=== PATIENT | female | born 1950 | race Caucasian/White ===

== ENCOUNTER 2019-01-12 20:38 | Emergency (ER) | payer MEDICARE ==
[2019-01-12 20:52] LABS: ABSOLUTE BASOPHILS # (AUTO) 0.1 10^3/uL (0.0-0.2); ABSOLUTE EOSINOPHILS # (AUTO) 0.5 10^3/uL (0.0-0.6); ABSOLUTE LYMPHOCYTES (AUTO) 3.1 10^3/uL (0.5-4.7); ABSOLUTE MONOCYTES (AUTO) 0.4 10^3/uL (0.1-1.4); ABSOLUTE NEUT (AUTO) 4.8 10^3/uL (1.7-8.2); BASOPHILS % (AUTO) 1.1 % (0-2); EOSINOPHILS % (AUTO) 5.3 % (0-6); HEMATOCRIT 39.9 % (36.0-47.0); HEMOGLOBIN 13.9 g/dL (12.0-15.5); LYMPHOCYTES % (AUTO) 34.6 % (13-45); MEAN CORPUSCULAR HEMOGLOBIN 29.1 pg (27.0-33.4); MEAN CORPUSCULAR HGB CONC 34.8 g/dL (32.0-36.0); MEAN CORPUSCULAR VOLUME 84 fl (80-97); MONOCYTES % (AUTO) 4.8 % (3-13); PLATELET COUNT 220 10^3/uL (150-450); RED BLOOD COUNT 4.78 10^6/uL (3.72-5.28); RED CELL DISTRIBUTION WIDTH 14.6 % (11.5-14.0); SEGMENTED NEUTROPHILS % (AUTO) 54.2 % (42-78); TOTAL CELLS COUNTED % (AUTO) 100 %; WHITE BLOOD COUNT 8.8 10^3/uL (4.0-10.5)
[2019-01-12 20:57] LABS: INTERNATIONAL RATION (INR) 0.95; PROTHROMBIN TIME 12.7 SEC (11.4-15.4)
[2019-01-12] MEDS ORDERED: NITROGLYCERIN 2% OINTMENT 1 GM PACKET ONE (21:11)
[2019-01-12 21:12] LABS: ALBUMIN 4.4 g/dL (3.5-5.0); ALKALINE PHOSPHATASE 71 U/L (38-126); ANION GAP 9 (5-19); ASPARTATE AMINO TRANSFERASE 27 U/L (14-36); BILIRUBIN,DIRECT 0.2 mg/dL (0.0-0.4); BILIRUBIN,TOTAL 0.3 mg/dL (0.2-1.3); BLOOD UREA NITROGEN 12 mg/dL (7-20); CALCIUM 9.7 mg/dL (8.4-10.2); CARBON DIOXIDE 28 mmol/L (22-30); CHLORIDE 103 mmol/L (98-107); GLUCOSE 110 mg/dL (75-110); POTASSIUM 3.9 mmol/L (3.6-5.0); TOTAL PROTEIN 7.5 g/dL (6.3-8.2)
[2019-01-12 21:14] LABS: CREATINE KINASE < 20 U/L (30-135)
[2019-01-12] MEDS ORDERED: CLOPIDOGREL BISULFATE 300 MG TABLET PO ONE (21:15)
[2019-01-12] MEDS ORDERED: NITROGLYCERIN 2% OINTMENT 1 GM PACKET TP ONE (21:15)
[2019-01-12] MEDS ORDERED: NITROGLYCERIN/D5W 50 MG/250 ML RTUINJ IV PRN ×2 (21:18→21:40)
--- NOTE | 2019-01-12 21:18 | ER Document Report ---
ED General - General Chief Complaint: Chest Pain Stated Complaint: CHEST PAIN Time Seen by Provider: 01/12/19 21:08 Primary Care Provider: JENNIFER SONI MD [Primary Care Provider] - Follow up as needed TRAVEL OUTSIDE OF THE [place] IN LAST 30 DAYS: No - HPI Notes: This is a 68-year-old female with a history of tobacco abuse and hypertension as well as family history of coronary artery disease that presents complaining of chest pressure that has been intermittent for the past 4 days. Patient states that the discomfort became much worse this evening about a hour prior to prese ntation. Patient states she was sitting up in bed watching TV when she had a heavy sensation of pressure in her chest. Patient called 911. When 911 arrived, they administered 4 baby aspirin and gave her sublingual nitroglycerin with complete relief of chest discomfort. Patient denies nausea, vomiting, diaphoresis, radiation of pain. Patient localizes the pain to the center of her chest. Patient denies prior history of coronary artery disease. Differential diagnosis: Unstable angina: STEMI, NSTEMI, coronary artery disease, tobacco abuse, hypertensive urgency - Related Data Allergies/Adverse Reactions: No Known Allergies Allergy (Verified 01/14/17 16:17) Past Medical History - Social History Smoking Status: Current Every Day Smoker Chew tobacco use (# tins/day): No Frequency of alcohol use: Occasional Drug Abuse: None Family History: None Patient has suicidal ideation: No Patient has homicidal ideation: No - Past Medical History Cardiac Medical History: Reports: Hx Hypertension Psychiatric Medical History: Reports: Hx Depression Past Surgical History: Reports: Hx Cholecystectomy, Hx Hysterectomy Review of Systems - Review of Systems Constitutional: No symptoms reported EENT: No symptoms reported Cardiovascular: Chest pain Respiratory: No symptoms reported Gastrointestinal: No symptoms reported Genitourinary: No symptoms reported Female Genitourinary: No symptoms reported Musculoskeletal: No symptoms reported Skin: No symptoms reported Hematologic/Lymphatic: No symptoms reported Neurological/Psychological: No symptoms reported Physical Exam - Vital signs Vitals: Resp 22 H 01/12/19 20:53 - Notes Notes: PHYSICAL EXAMINATION: GENERAL: Well-appearing, well-nourished and in no acute distress. HEAD: Atraumatic, normocephalic. EYES: Pupils equal round and reactive to light, extraocular movements intact, sclera anicteric, conjunctiva are normal. ENT: nares patent, oropharynx clear without exudates. Moist mucous membranes. NECK: Normal range of motion, supple without lymphadenopathy LUNGS: Breath sounds clear to auscultation bilaterally and equal. No wheezes rales or rhonchi. HEART: Regular rate and rhythm without murmurs ABDOMEN: Soft, nontender, normoactive bowel sounds. No guarding, no rebound. No masses appreciated. EXTREMITIES: Normal range of motion, no pitting or edema. No cyanosis. NEUROLOGICAL: No focal neurological deficits. Moves all extremities spontaneously and on command. PSYCH: Normal mood, normal affect. SKIN: Warm, Dry, normal turgor, no rashes or lesions noted. Course - Re-evaluation Re-evalutation: 01/12/19 21:50 Patient is currently chest pain-free at this time. Her blood pressure is 193/96 with a heart rate of 59. O2 sats are 92%. Respiratory rate is 16. Nitroglycerin drip and heparin drip have been ordered. This MD discussed the patient case with the electronic assembler at [facility], Dr. Yusuf, at 2113 hrs. He reviewed the EKG image. He recommended a heparin and nitroglycerin drip and accepted the patient for transfer. While he does not feel the patient needs to be emergently cathed based on review the EKG, he did request that nitroglycerin drip and heparin drip be ordered for the patient. Plavix was also ordered for the patient. - Vital Signs Vital signs: Temp Pulse Resp BP Pulse Ox 97.9 F 15 196/101 H 97 01/12/19 22:11 01/12/19 21:16 01/12/19 21:16 01/12/19 20:54 - Laboratory Result Diagrams: 01/12/19 20:09 01/12/19 20:09 Laboratory results interpreted by me: 01/12/19 01/12/19 20:09 20:09 RDW 14.6 H Creatine Kinase < 20 L - EKG Interpretation by Me Additional EKG results interpreted by me: 01/12/19 21:54 EKG performed at 7 hrs. on 01/12/2019. EKG interpreted by this MD. Impression: Patient has a sinus bradycardia with a rate of 56, patient has ST depressions in 1, 2, aVL, V3 through V6, and ST elevation in aVR and V1. P waves preceding QRS complexes. QRS complexes are narrow. Impression abnormal EKG Right side EKG done on 01/12/2019 at 2132 hrs. was interpreted by this MD. Imp ression normal sinus rhythm with a rate of 60, patient has ST depressions in 1, 2, aVL patient has an T inverted T waves and 3 and aVF patient has ST elevation in aVR and V1. Impression abnormal EKG - Consults DR. YUSUF Time consulted: 21:23 - Patient discussed with electronic assembler at [facility]. He accepted patient for transfer to his facility Reason for consultation: 01/12/19 22:22 Chest pain, abnormal EKG Critical Care Note - Critical Care Note Total time excluding time spent on procedures (mins): 60 Discharge - Discharge Clinical Impression: Acute chest pain, Abnormal EKG, Hypertensive urgency, malignant Disposition: [facility]ESS [facility] Admitting Provider: DR. YUSUF Referrals: JENNIFER SONI MD [Primary Care Provider] - Follow up as needed
[2019-01-12] MEDS ORDERED: HEPARIN SODIUM,PORCINE/D5W 25,000 UNIT/250 ML RTUINJ IV PRN (21:42)
[2019-01-12] MEDS ORDERED: HEPARIN SOD (PORCINE) 1,000 UNIT/ML 10 ML VIAL IV ONE (21:42)
--- NOTE | 2019-01-12 21:50 | RADIOLOGY REPORT (SQ) ---
EXAM DESCRIPTION: XR CHEST 1 VIEW COMPLETED DATE/TME: 01/12/2019 20:42 CLINICAL HISTORY: CP COMPARISON: None FINDINGS: Cardiac silhouette is within normal limits. There is no focal parenchymal or pleural disease. There is no acute osseous process visualized. EKG leads project over the chest. Defibrillator pad projects over the left lower chest. IMPRESSION: No evidence of acute cardiopulmonary disease.
[2019-01-12 23:11] LABS: CREATINE KINASE MB < 0.22 ng/mL (<4.55)
--- NOTE | 2019-01-12 23:11 | EKG REPORT ---
SEVERITY:- DEFECTIVE ECG - SINUS RHYTHM LVH WITH SECONDARY REPOLARIZATION ABNORMALITY : Confirmed by: Robbin Arzate MD 12-Jan-2019 23:11:32
[2019-01-12 23:12] LABS: TROPONIN I 0.191 ng/mL
--- NOTE | 2019-01-12 23:13 | EKG REPORT ---
SEVERITY:- ABNORMAL ECG - SINUS RHYTHM LVH WITH SECONDARY REPOLARIZATION ABNORMALITY ST DEPRESSION, CONSIDER ISCHEMIA, ANT-LAT LDS : Confirmed by: Robbin Arzate MD 12-Jan-2019 23:12:00
[2019-01-13 00:50] VITALS: BP 202/106
[2019-01-13] MEDS ORDERED: CLOPIDOGREL BISULFATE 300 MG TABLET ONE (10:37)
== END 2019-01-13 00:50 | disposition short-term general hospital (02) ==
LOC: ER 20:38
DX: R07.9 Chest pain, unspecified (principal); R94.31 Abnormal electrocardiogram [ECG] [EKG]; I16.0 Hypertensive urgency; I10 Essential (primary) hypertension; I25.10 Atherosclerotic heart disease of native coronary artery without angina pectoris; F17.200 Nicotine dependence, unspecified, uncomplicated
CPT/HCPCS: 93005; 36415; 82553; 82550; 85025; 85610; 80053; 84484; 71045; 93010; A9270 ×2; J1644 ×2; J3490